=== PATIENT | female | born 1945 | race Caucasian/White ===

== ENCOUNTER → 2017-09-23 | Outpatient (CLI) | payer MEDICARE ==
[~2017-09-23] MED LIST: AMOX-559 PO; ASPI-1471 PO; ATOR10TA24 PO; ATR80PT PO; AZIT-1 PO; BENZ200C15 PO; CALC-797 PO; CAR200 PO; CIPR-344 PO; CIPR-345 PO; CYAN500T38 PO; CYCL1DRO6 OP; GOLYTE PO; HYDR12.556 PO; HYDR12.558 PO; IBUP-56 PO; MAGN250T5 PO; MAGN400T36 PO; MECL25TA9 PO; METF500T4 PO; METO25TA93 PO; MULT-1081 PO; OLM20 PO; PNEU0.5D3 IM; POTT20 PO; PRED20TA6 PO; ROPI0.5T25 PO; ROPI1TAB36 PO; ROSU20TA23 PO; SIMV-54 PO; SPIR25TA78 PO; TRAM-420 PO
== END ==
LOC: LAB 08:46
PROVIDERS: ATTEND Emergency Medicine
DX: E11.9 Type 2 diabetes mellitus without complications (principal); E78.00 Pure hypercholesterolemia, unspecified
CPT/HCPCS: 36415; 82465; 83036; 83718; 84478

== ENCOUNTER → 2018-03-24 | Outpatient (CLI) | payer MEDICARE ==
[~2018-03-24] MED LIST changes: +CHOL10005 PO; +OMEG-96 PO; +PRAM0.1225 PO; -SPIR25TA78 PO; +SPIR25TA80 PO; +VIT1CAPS33 PO; +[UNRECOGNIZED DRUG - CODE] PO
[2018-03-24 14:24] LABS: PLATELET COUNT, AUTOMATED 261 K/uL (150-450)
== END ==
LOC: LAB 14:04
PROVIDERS: ATTEND Emergency Medicine
DX: E11.9 Type 2 diabetes mellitus without complications (principal)
CPT/HCPCS: 36415; 82040; 82247; 82310; 82374; 82435; 82565; 82947; 83036; 84075; 84132; 84155; 84295; 84450; 84460; 84520; 85007; 85027

== ENCOUNTER → 2018-03-28 | Outpatient (CLI) | payer MEDICARE | LOC: LAB 09:08 | PROVIDERS: ATTEND Emergency Medicine | DX: G25.81 Restless legs syndrome (principal) | CPT/HCPCS: 36415; 82607; 82746; 83090; 83540; 83550; 83921 ==

== ENCOUNTER → 2018-12-11 | Outpatient (CLI) | payer MEDICARE ==
[~2018-12-11] MED LIST changes: +ACET-2146 PO; +ANTRONEX PO; +ATOR40TA69 PO; +CALC600T63 PO; +CHOL100058 PO; +FLUT16SP19 NS; +OCUVITE SOFTGE1 EACH PO; +PRAM0.2524 PO; -ROSU20TA23 PO; +ROSU20TA24 PO; -VIT1CAPS33 PO; +[UNRECOGNIZED DRUG - OTHER] PO; +[UNRECOGNIZED DRUG - OTHER] PO
--- NOTE | 2018-12-11 12:49 | RADIOLOGY IMAGING REPORT ---
[facility] PATIENT NAME: Magda Dejesus : 1945 MR: [id number] V: [id number] EXAM DATE: ORDERING PHYSICIAN: MARVEL LINDSEY TECHNOLOGIST: Location: [facility] Patient: Magda Dejesus : 1945 Visit/Account:[id number] Date of Sevice: 12/11/2018 HAND COMPLETE LEFT, XR WRIST 3 OR MORE VIEWS LT Indication: hand edema, pain Comparison: Left hand radiograph 09/23/2015. Findings: Left hand radiograph: There is severe narrowing of the DIP and PIP joints with osteophyte formation. Central erosion is seen in the fifth DIP joint. The MCP joints are preserved. There is severe narr owing of the first carpal metacarpal joint space, with complete collapse of the trapezium, unchanged. Metacarpal joint space is preserved. There is no soft tissue swelling. Left wrist: There is a nondisplaced fracture at the ulna styloid process, new from the prior study. The distal radius is intact. There is severe narrowing and complete collapse of the first carpometac arpal joint space and the trapezium. There is spurring at the scaphoid trapezium joint. IMPRESSION: 1. Nondisplaced fracture of the ulna styloid process, new from comparison 09/23/2015. 2. 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 3. 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 Report Dictated By: Antelmo Santos at 12/11/2018 12:41 PM Report E-Signed By: Antelmo Santos at 12/11/2018 12:44 PM WSN:[email or web address]
--- NOTE | 2018-12-11 12:53 | RADIOLOGY IMAGING REPORT ---
FACILITY: [facility] PATIENT NAME: Magda Dejesus : 1945 MR: [id number] V: [id number] EXAM DATE: ORDERING PHYSICIAN: MARVEL LINDSEY TECHNOLOGIST: Location: [facility] - [place] Patient: Magda Dejesus : 1945 Visit/Account:[id number] Date of Sevice: 12/11/2018 HAND COMPLETE LEFT, XR WRIST 3 OR MORE VIEWS LT Indication: hand edema, pain Comparison: Left hand radiograph 09/23/2015. Findings: Left hand radiograph: There is severe narrowing of the DIP and PIP joints with osteophyte formation. Central erosion is seen in the fifth DIP joint. The MCP joints are preserved. There is severe narr owing of the first carpal metacarpal joint space, with complete collapse of the trapezium, unchanged. Metacarpal joint space is preserved. There is no soft tissue swelling. Left wrist: There is a nondisplaced fracture at the ulna styloid process, new from the prior study. The distal radius is intact. There is severe narrowing and complete collapse of the first carpometac arpal joint space and the trapezium. There is spurring at the scaphoid trapezium joint. IMPRESSION: 1. Nondisplaced fracture of the ulna styloid process, new from comparison 09/23/2015. 2. 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 3. 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 Report Dictated By: Antelmo Santos at 12/11/2018 12:41 PM Report E-Signed By: Antelmo Santos at 12/11/2018 12:44 PM WSN:[email or web address]
== END ==
LOC: RAD 11:49
PROVIDERS: ATTEND Family Medicine
DX: S52.615A Nondisplaced fracture of left ulna styloid process, initial encounter for closed fracture (principal); M18.12 Unilateral primary osteoarthritis of first carpometacarpal joint, left hand; M19.042 Primary osteoarthritis, left hand
CPT/HCPCS: 36415; 82310; 82374; 82435; 82565; 82947; 84132; 84295; 84520; 84550

== ENCOUNTER → 2019-02-14 | Outpatient (CLI) | payer MEDICARE ==
[~2019-02-14] MED LIST changes: -CYAN500T38 PO; +CYAN500T39 PO
--- NOTE | 2019-02-19 17:18 | RT HOLTER TEST ---
FACILITY: [facility] PATIENT NAME: MAGALI NUNEZ : [id number] MR: [id number] V: [id number] EXAM DATE: ORDERING PHYSICIAN: MARVEL LINDSEY TECHNOLOGIST: Jose Juan Chang-up date: 2019-02-14 15:55:00 Duration: 47:59:00 Test Indications: Palpitations Medications: Metformin Pramipexole HCTZ Spironolactone [id number] QRS complexes 433 Ventricular ectopics which represent <1 % of total QRS comp. 39 Supraventricular ectopics which represent <1 % of total QRS comp. * Paced QRS complexes which represent % of total QRS comp. VENTRICULAR ECTOPY 433 Isolated 0 Bigeminal Cycles 0 Couplets 0 Runs 0 Beats in Runs * Beats LONGEST at * BPM at :: -- * Beats FASTEST at * BPM at :: -- SUPRAVENTRICULAR ECTOPY 35 Isolated 0 Couplets 1 Runs 4 Beats in Runs 4 Beats LONGEST at 180 BPM at 08:06:24 2019-02-16 4 Beats FASTEST at 180 BPM at 08:06:24 2019-02-16 HEART RATES 58 MIN at 04:29:56 2019-02-15 93 AVG 131 MAX at 14:46:33 2019-02-16 LONGEST RR 1.248 secs at 04:29:51 2019-02-15 S-T LEVELS Channel 1 -12.800 mm MIN at 15:55:00 2019-02-14 -12.800 mm MAX at 15:55:00 2019-02-14 Channel 2 -12.800 mm MIN at 15:55:00 2019-02-1412.800 mm MAX at 15:55:00 2019-02-14 Channel 3 -12.800 mm MIN at 15:55:00 2019-02-14 -12.800 mm MAX at 15:55:00 2019-02-14 Sinus rhythm Premature supraventricular complexes Premature ventricular complexes Confirmed by MELVA KUMAR ([id number]) on 02/19/2019 5:18:16 PM Referred By: Overread By: MELVA KUMAR
== END ==
LOC: RESP 07:38
PROVIDERS: ATTEND Family Medicine
DX: R00.2 Palpitations (principal)
CPT/HCPCS: 93225; 93226

== ENCOUNTER → 2019-04-09 | Outpatient (CLI) | payer MEDICARE ==
[2019-04-09 11:30] LABS: PLATELET COUNT, AUTOMATED 275 K/uL (150-450)
== END ==
LOC: LAB 10:54
PROVIDERS: ATTEND Family Medicine
DX: E78.00 Pure hypercholesterolemia, unspecified (principal); I10 Essential (primary) hypertension; E11.9 Type 2 diabetes mellitus without complications
CPT/HCPCS: 36415; 82310; 82374; 82435; 82565; 82947; 83036; 84132; 84295; 84520; 85025

== ENCOUNTER → 2019-04-26 | Outpatient (CLI) | payer MEDICARE ==
--- NOTE | 2019-04-27 13:57 | RADIOLOGY IMAGING REPORT ---
FACILITY: [facility] - [place] PATIENT NAME: MAGALI NUNEZ : [id number] MR: [id number] V: [id number] EXAM DATE: ORDERING PHYSICIAN: MARVEL LINDSEY TECHNOLOGIST: Tahmina Avila PROCEDURE: BILATERAL DIGITAL SCREENING MAMMOGRAM WITH CAD ASSISTED INTERPRETATION & 3D TOMOSYNTHESIS REASON FOR STUDY: Screening. FAMILY HISTORY OF BREAST CANCER: None. BREAST PROCEDURES/TREATMENTS: Benign surgical biopsy of the Left breast. COMPARISON: 02/18/17, 03/14/15, 02/13/13. VIEWS OBTAINED: Bilateral 2D & 3D full field CC & MLO projections. MAMMOGRAM FINDINGS: The parenchymal pattern throughout the breasts has remained stable allowing for difference in mammographic technique & patient positioning. IMPRESSION: BIRADS 1: Negative. DIAGNOSTIC CATEGORY 1--NEGATIVE. RECOMMENDATIONS: ROUTINE MAMMOGRAM AND CLINICAL EVALUATION. Dictated by: Hailey Mays M.D. on 04/26/2019 at 11:10 Transcribed by: PILO on 04/27/2019 at 13:14 Approved by: Hailey Mays M.D. on 04/27/2019 at 13:50 [facility]
== END ==
LOC: MAMO 01:41
PROVIDERS: ATTEND Family Medicine
DX: Z12.31 Encounter for screening mammogram for malignant neoplasm of breast (principal)
CPT/HCPCS: 77063; 77067